=== PATIENT | female | born 1995 | race Caucasian/White ===

== ENCOUNTER 2018-12-24 17:06 | Emergency (ER) | payer MEDICAID ==
[2018-12-24] MEDS: AMOXICILLIN 500 MG CAP PO (20:27)
[2018-12-24] MEDS: IBUPROFEN 600 MG TAB PO (20:28)
== END 2018-12-24 20:42 | disposition home or self-care (01) ==
LOC: FTE 17:06
DX: H66.93 Otitis media, unspecified, bilateral (principal)
CPT/HCPCS: 99283; Z7502